=== PATIENT | female | born 1950 | race Caucasian/White ===

== ENCOUNTER 2021-07-22 12:30 | Emergency (ER) | payer MEDICARE, SELFPAY ==
--- NOTE | ~2021-07-22 | XR_ITS ---
EXAMINATION: XR abdomen/kub 1V INDICATION: Ureteral stone TECHNIQUE: Supine views of the abdomen were obtained on 2 radiographs. COMPARISON: CT from today FINDINGS: A faint left pelvic calcification may reflect the ureteral stone described on CT examinatio n. No additional urolithiasis is identified. The bowel gas pattern is normal. The visualized lung bas es are clear. Tubal ligation clips are noted. IMPRESSION: 1. Faint left pelvic calcification which may reflect the ureteral stone described on CT. Reviewed, dictated and finalized at location F. ING TRACTOR OPERATOR SWAMP IMPRESSION: 1. Faint left pelvic calcification which may reflect the ureteral stone describ ed on CT.
--- NOTE | ~2021-07-22 | CT_ITS ---
EXAMINATION: CT abdomen pelvis wo con EXAM DATE: 07/22/2021 13:18 INDICATION: Left lower abdominal pain radiating to back, vomiting, nausea, diarrhea. TECHNIQUE: Spiral CT of the abdomen and pelvis was performed without contrast. Axial, coronal and s agittal images of the abdomen and pelvis were reviewed. The dose-length product (DLP) for this exami nation was 247.24 mGy-cm. The exposure was tailored according to patient size (auto mA exposure cont rol), and iterative reconstruction (ASIR) was used as additional dose reduction technique. There is no prior study for comparison. FINDINGS: The liver, spleen, adrenal glands and pancreas are unremarkable. Gallbladder is unremarkab le. No biliary obstruction. There is a 2 mm right superior calyceal stone. There is a left pelvic c alcification probably a distal ureteral 3.5 mm stone (axial image 127). Mild left-sided obstructive n ephropathy. The uterus is unremarkable. The bladder is unremarkable. There is no retroperitoneal or pelvic lymphadenopathy. There is mild scattered arteriosclerotic disease. The appendix is normal. There is mild scattered colonic diverticulosis. There is no adjacent inflamm atory change to suggest diverticulitis. There is small sliding gastroesophageal hiatal hernia. There is expected amount of colonic stool. No free intraperitoneal gas. The heart is normal in size. There are no pericardial or pleural effusions. There is 4 mm right lower lobe pleural-based nodule s tatistically most likely noncalcified granuloma. There are no osteoblastic or osteolytic lesions cali ntified. IMPRESSION: 1. Left distal ureteral 3.5 mm stone, mild obstructive nephropathy. 2. Punctate right nephrolithiasis. 3. Mild colonic diverticulosis. 4. Small gastroesophageal hiatal hernia. 5. Small right lower lobe nodule probably granuloma. Reviewed, dictated and finalized at location A. PLAYER ASSISTANT
[2021-07-22 12:40] VITALS: BP 121/80; PULSE 68; RESP 18; TEMP 36.6; O2SAT 100
[2021-07-22] MEDS: KETOROLAC 30 MG/ML VIAL (*BKC) IV PUSH (13:05)
[2021-07-22] MEDS: ONDANSETRON INJ 4 MG/2 ML VIAL IV PUSH ×2 (13:05→15:49)
--- NOTE | 2021-07-22 13:10 | PC.NURSE ---
Pt states she could not give urine sample at this time.
--- NOTE | 2021-07-22 13:11 | PC.NURSE ---
Pt going to CT scan.
--- NOTE | 2021-07-22 13:22 | ED.ABDPAIN ---
HPI - Abdominal Pain General Chief Complaint: Abdominal Pain <SHELLY Quezada Last Filed: 07/22/21 19:47> Stated Complaint: abd pain/NV <SHELLY Quezada Last Filed: 07/22/21 19:47> Time Seen by Provider: 07/22/21 12:44 <SHELLY Quezada Last Filed: 07/22/21 19:47> Source: patient <SHELLY Quezada Last Filed: 07/22/21 19:47> Mode of arrival: ambulatory <SHELLY Quezada Last Filed: 07/22/21 19:47> Limitations: no limitations <SHELLY Quezada Last Filed: 07/22/21 19:47> History of Present Illness HPI narrative: This is a 70-year-old female patient who presents to the ED with complaints of left lower back pain, radiating around her left lower abdomen that began this morning. Patient reports the pain is severe and worse with any movement. She has not taken anything for the pain and has never had pain like this before. Patient also reports having nausea, vomiting, and dysuria, but denies any fevers, chills, hematuria, diarrhea, constipation, CP, SOB, or a history of kidney stones. <Aziza Sherman PA-C Last Filed: 07/22/21 19:47> Related Data Home Medications: Home Medications Medication Instructions Recorded Confirmed [id number]-vit K tablet PO 07/22/21 [Adults Multivitamin] <SHELLY Quezada Last Filed: 07/22/21 19:47> Allergies/Adverse Reactions: Allergies Allergy/AdvReac Type Severity Reaction Status Date / Time No Known Allergies Allergy Verified 07/22/21 13:01 <Aziza Sherman PA-C - Last Filed: 07/22/21 19:47> Review of Systems Review of Systems: CONSTITUTIONAL: Denies fever, chills, or sweats. CARDIOVASCULAR: Denies chest pain. RESPIRATORY: Denies dyspnea. GASTROINTESTINAL: Reports left lower abdominal pain, N/V. Denies diarrhea, constipation. GENITOURINARY: Reports dysuria. Denies hematuria. SKIN: Denies rash or itching. MUSCULOSKELETAL: Reports left lower back pain. Denies joint pain, or myalgia. NEUROLOGIC: Denies headache, numbness, or weakness. <Aziza Sherman PA-C - Last Filed: 07/22/21 19:47> All systems reviewed & are unremarkable except as noted in HPI and below <Aziza Sherman PA-C - Last Filed: 07/22/21 19:47> PMFSH Past Medical History Medical History: Medical History (Updated 07/22/21 @ 15:34 by Aziza Sherman PA-C) No pertinent past medical history <Aziza Sherman PA-C - Last Filed: 07/22/21 19:47> Surgical History Surgical History: Surgical History (Updated 07/22/21 @ 13:24 by Aziza Sherman PA-C) H/O tubal ligation <Aziza Sherman PA-C - Last Filed: 07/22/21 19:47> Social History Social History: Social History (Updated 07/22/21 @ 13:24 by Aziza Sherman PA-C) Smoking status: Never smoker <Aziza Sherman PA-C - Last Filed: 07/22/21 19:47> Exam Narrative: APPEARANCE: Well appearing, appears to be in moderate pain and distress, restless on ED bed, well-nourished. HEAD: Normocephalic atraumatic. EYES: EOMI, conjunctivae very clear. NECK: Supple. No adenopathy, no masses. RESPIRATORY: Airway patent, respirations nonlabored. Clear to auscultation bilaterally, no rales, rhonchi, wheezing. CARDIOVASCULAR: Regular rate and rhythm without murmurs rubs or gallops. ABDOMINAL: Mild tenderness to palpation in LLQ and suprapubic region. Soft, nondistended, no hepatosplenomegaly. Normoactive bowel sounds. No guarding/rebound. No significant CVA tenderness to percussion. MUSCULOSKELETAL: No tenderness to palpation of left lower back. Moves all extremities. Strength/ROM intact, No edema NEURO: A&O X3. Cranial nerves II - XII grossly intact. Speech clear. SKIN:: Warm, dry. Normal Color PSYCHIATRIC: Normal affect/mood, normal interaction. <Aziza Sherman PA-C - Last Filed: 07/22/21 19:47> Course PERIANESTHESIA RN/PA Physician Supervision I did not see this patient nor was the care plan discussed with me. I was available for evaluation and consultation, I
[2021-07-22 13:52] LABS: Basophils Percent Auto 0.2 % (0.2-1.2); Eosinophils Percent Auto 0.1 % (0-4.4); Hematocrit 41.7 % (37.0-47.0); Hemoglobin 13.5 g/dL (12.0-15.0); Immature Granulocyte Absolute 0.05 K/mm3 (0.00-0.031); Immature Granulocyte Percent A 0.4 % (0-0.5); Lymphocytes Absolute Auto 1.18 K/mm3 (0.9-3.2); Lymphocytes Percent Auto 9.7 % (18.3-44.2); Mean Corpuscular HGB Conc 32.4 g/dl (32-36); Mean Corpuscular Hemoglobin 29.7 pg (26-34); Mean Corpuscular Volume 91.6 fl (80-100); Mean Platelet Volume 9.5 fl (7.4-10.4); Monocytes Absolute Auto 0.5 K/mm3 (0.1-0.6); Monocytes Percent Auto 4.4 % (2.6-8.5); Neutrophils Absolute Auto 10.3 K/mm3 (1.3-6.7); Neutrophils Percent Auto 85.2 % (45.5-73.1); Platelet Count Result 322 k/mm3 (150-375); Red Blood Count 4.55 M/mm3 (4.2-5.4); Red Cell Distribution Width 12.8 % (11.5-14.5); White Blood Count 12.1 K/mm3 (4.5-10.0)
[2021-07-22 13:54] LABS: Alanine Aminotransferase 22 U/L (4-35); Albumin Level 4.5 g/dL (3.5-5.1); Alkaline Phosphatase 94 U/L (38-126); Anion Gap 8 mmol/L (8-16); Aspartate Amino Transferase 31 U/L (14-36); Bilirubin,Total 0.5 mg/dL (0.2-1.3); Blood Urea Nitrogen 17 mg/dL (7-17); Calcium 9.8 mg/dL (8.4-10.2); Carbon Dioxide 27 mmol/L (22-30); Chloride 104 mmol/L (98-107); Estimated CRCL calculation 37 ml/min; Estimated Glomerular Filt Rate > 60; Glucose 113 mg/dL (65-110); Lipase 88 U/L (23-300); Potassium 3.9 mmol/L (3.4-5.0); Sodium 139 mmol/L (137-145)
[2021-07-22 14:31] LABS: Add Urine Microscopic? YES; Amorphous Sediment Urine Few; Appearance Urine Cloudy (Clear); Bilirubin Urine Negative (Negative); Color Urine Yellow (Yellow); Glucose Urine UA Negative (Negative); Ketones Urine 2+ mg/dL (Negative); Leukocyte Esterase Ur Negative LEU/UL (Negative); Mucus Urine Rare /lpf; Nitrate Urine Negative (Negative); Protein Urine Negative (Negative); Specific Grav Ur 1.017 (1.001-1.035); Urobilinogen Urine Negative mg/dL (<2.0)
[2021-07-22 14:34] LABS: Blood Urine Negative (Negative)
[2021-07-22] MEDS: SODIUM CHLORIDE 0.9% IV 1,000 ML 999 ML IV CONT (14:46)
[2021-07-22] MEDS: MORPHINE SULFATE (*CRX) 2 MG/ML INJ IV PUSH (15:49)
[2021-07-22 16:02] VITALS: BP 121/55; PULSE 80; RESP 18; O2SAT 100
--- NOTE | 2021-07-27 08:40 | PC.NURSE ---
LATE ENTRY This note is being entered to document information to the patient's record. The following information was omitted on [07/27/2021], by [Aster Cueto RN]. Rocephin stopped at 1617 on 07/22/2021.
== END 2021-07-22 17:13 | disposition home or self-care (01) ==
PROVIDERS: Emergency Provider Emergency Medicine; PCP Student in an Organized Health Care Education/Training Program
DX: N13.8 Other obstructive and reflux uropathy (principal); N20.1 Calculus of ureter; N20.0 Calculus of kidney; K57.90 Diverticulosis of intestine, part unspecified, without perforation or abscess without bleeding; K44.9 Diaphragmatic hernia without obstruction or gangrene
CPT/HCPCS: 36415; 74018; 74176; 80053; 81001; 83690; 85025; 87086; 96361; 96374; 96375; 96376; 99284; J0696; J1885; J2270; J2405; J7030

== ENCOUNTER 2021-08-15 10:41 | Outpatient (CLI) | payer MEDICARE, SELFPAY ==
--- NOTE | ~2021-08-15 | XR_ITS ---
XR abdomen/kub 1V 08/15/2021 11:05 Indication: Renal stone follow-up Procedure: KUB Comparison: 07/22/2021 Findings: Bowel gas pattern is nonobstructive. Moderate colonic fecal loading. There are tubal ligati on clips in the pelvis. There is calcified granuloma overlying the left upper abdomen. Moderate lumba r spondylosis. No acute osseous abnormality. Impression: 1: No acute abdominal abnormality. No nephrolithiasis identified. Reviewed, dictated and finalized at location A. Impression: 1: No acute abdominal abnormality. No nephrolithiasis identified.
== END 2021-08-15 10:42 | disposition home or self-care (01) ==
LOC: ANHIMG 10:43
PROVIDERS: PCP Student in an Organized Health Care Education/Training Program; Visit Provider Nurse Practitioner Family
DX: N20.0 Calculus of kidney (principal); M47.816 Spondylosis without myelopathy or radiculopathy, lumbar region
CPT/HCPCS: 74018